=== PATIENT | male | born 1965 | race Caucasian/White ===

== ENCOUNTER 2018-03-16 23:01 | Inpatient (IN) | payer BC ==
[2018-03-16] MEDS ORDERED: Morphine INJ** 4 MG/ML 1 ML CARPUJECT IV ONE (23:09)
[2018-03-16] MEDS ORDERED: Clopidogrel TAB* 300 MG PO ONE (23:09)
[2018-03-16] MEDS ORDERED: Aspirin 81 mg CHEW TAB* 81 MG TAB.CHEW PO ONE (23:09)
[2018-03-16] MEDS ORDERED: Ticagrelor* 90 MG TAB PO ONE (23:09)
[2018-03-16] MEDS ORDERED: Heparin for STEMI(*) 5,000 UNITS/ML 1 ML VIAL IV ONE ×2 (23:09→23:13)
[2018-03-16] MEDS ORDERED: NS 0.9% 1000 ML* 1,000 ML IV ONE (23:09)
[2018-03-16] MEDS ORDERED: Metoclopramide IV* 5 MG/ML 2 ML VIAL IV SLOW PU ONE (23:11)
[2018-03-16] MEDS ORDERED: Pantoprazole IV* 40 MG IV ONE (23:12)
[2018-03-16] MEDS ORDERED: Aspirin 81 mg CHEW TAB* 81 MG TAB.CHEW ONE (23:13)
[2018-03-16] MEDS ORDERED: Nitroglycerin TAB 0.4 MG* 0.4 MG TAB ONE (23:13)
[2018-03-16] MEDS ORDERED: nitroGLYCERIN DRIP* 25,000 MCG/250 ML BTL ONE ×2 (23:14→23:34)
[2018-03-16] MEDS ORDERED: Morphine VIAL* 10 MG/ML 1 ML VIAL ONE ×2 (23:15→23:30)
[2018-03-16 23:28] LABS: ABS Basophils 0.1 10^3/ul (0-0.2); ABS Eosinophils 0.1 10^3/ul (0-0.6); ABS Lymphocytes 2.1 10^3/ul (1.0-4.8); ABS Monocytes 0.6 10^3/ul (0-0.8); ABS Neutrophils 6.6 10^3/ul (1.5-7.7); ABS Nucleated RBC 0 10^3/ul; Eosinophil % 1.3 % (0-6); Hematocrit 42 % (42-52); Hemoglobin 14.5 g/dl (14.0-18.0); Mean Corpuscular HGB Conc 35 g/dl (31-36); Mean Corpuscular Hemoglobin 33 pg (27-31); Mean Corpuscular Volume 96 fL (80-94); Mean Platelet Volume 8.7 um3 (7.4-10.4); Nucleated Red Blood Cells % 0; Platelet Count 249 10^3/ul (150-450); Red Blood Count 4.35 10^6/ul (4.00-5.40); Red Cell Distribution Width 13 % (10.5-15); White Blood Count 9.5 10^3/ul (3.5-10.8)
[2018-03-16] MEDS ORDERED: Morphine VIAL* 4 MG/ML VIAL (1 ml vial) IV ONE (23:30)
--- NOTE | 2018-03-16 23:31 | ED ---
HPI Chest Pain - HPI Summary HPI Summary: This is evijuan Ahnjomar Wallace documenting for attending Dr. Fiona Waters MD. A 52 y/o male presents to ED c/o chest pain. According to the patient, he has been experiencing chest pain for the past 2 hours. He originally thought it was his stmoach, but it progressively got worse. Additional symptoms are vomiting. Current medications are Aspirin. PMHx of stent for 4 years. - History of Current Complaint Time Seen by Provider: 03/16/18 23:03 Hx Obtained From: Patient - Allergy/Home Medications Allergies/Adverse Reactions: Allergies Allergy/AdvReac Type Severity Reaction Status Date / Time No Known Allergies Allergy Verified 09/06/13 17:15 PMH/Surg Hx/FS Hx/Imm Hx Endocrine/Hematology History: Denies: Hx Diabetes, Hx Thyroid Disease Cardiovascular History: Reports: Hx Hypertension Respiratory History: Denies: Hx Asthma, Hx Chronic Obstructive Pulmonary Disease (COPD) GI History: Reports: Hx Ulcer - gerd - Surgical History Surgery Procedure, Year, and Place: inguinal hernia left Infectious Disease History: Denies: Hx Hepatitis, Hx Human Immunodeficiency Virus (HIV), Traveled Outside the [place] in Last 30 Days - Family History Known Family History: Positive: Cardiac Disease - Social History Alcohol Use: None Substance Use Type: Reports: None Smoking Status (MU): Heavy Every Day Tobacco Smoker Amount Used/How Often: 1 PPD Review of Systems Negative: Fever Positive: Chest Pain Positive: Vomiting All Other Systems Reviewed And Are Negative: Yes Physical Exam - Summary Physical Exam Summary: GENERAL: Patient is a well-developed and nourished MALE who is lying comfortable in the stretcher. Patient is not in any acute respiratory distress. Patient is uncomfortable. HEAD AND FACE: No signs of trauma. No ecchymosis, hematomas or skull depressions. No sinus tenderness. EYES: PERRLA, EOMI x 2, No injected conjunctiva, no nystagmus. EARS: Hearing grossly intact. Ear canals and tympanic membranes are within normal limits. MOUTH: Oropharynx within normal limits. NECK: Supple, trachea is midline, no adenopathy, no JVD, no carotid bruit, no c- spine tenderness, neck with full ROM. CHEST: Symmetric, no tenderness at palpation LUNGS: Clear to auscultation bilaterally. No wheezing or crackles. CVS: Bradycardic, S1 and S2 present, no murmurs or gallops appreciated. ABDOMEN: Soft, non-tender. No signs of distention. No rebound no guarding, and no masses palpated. Bowel sounds are normal. EXTREMITIES: FROM in all major joints, no edema, no cyanosis or clubbing. NEURO: Alert and oriented x 3. No acute neurological deficits. Speech is normal and follows commands. SKIN: Dry and warm. Patient is diaphoretic Triage Information Reviewed: Yes Vital Signs Reviewed: Yes Diagnostics - Laboratory Lab Statement: Any lab studies that have been ordered have been reviewed, and results considered in the medical decision making process. - Radiology CXR Radiology Interpretation Completed By: ED Physician - EKG 2305 Cardiac Rate: Bradycardia - 50 BPM EKG Rhythm: Sinus Bradycardia EKG Interpretation: ST elev. inferior lead, ST dep. anterior lead, consistent acute inferior SD Chest Pain Course/Dx - Course Course Of Treatment: A 52 y/o male presents to ED c/o chest pain. According to the patient, he has been experiencing chest pain for the past 2 hours. He originally thought it was his stmoach, but it progressively got worse. Additional symptoms are vomiting. A CXR revealed COPD, no acute disease. An EKG revealed. In the ED course, the patient recieved Aspirin, Plavix, Heparin, Reglan, NTG, Morphine, Protonix and Brilinta. Patient care was discussed with Dr. Mahmood who is coming to see patient. Patient will be admitted with a diagnosis of acute inferior SD. Pt is agreeable with this plan. - Diagnoses Provider Diagnoses: Acute inferior myocardial infarction - Provider Notifications Discussed Care Of Patient With: Bill Mahmood Time Discussed With Above Provider: 23:16 Instructed by Provider To: Other - Will see patient. Discharge - Sign-Out/Discharge Documenting (check all that apply): Patient Departure - ADMIT - Discharge Plan Condition: Stable Disposition: HOME Referrals: Hellen Schaefer [Primary Care Provider] -
[2018-03-16] MEDS ORDERED: Heparin(*) 1000 UNIT/ML 10 ML VIAL CATH LAB IV ONE ×2 (23:33→23:53)
[2018-03-16] MEDS ORDERED: Midazolam* 1 MG/ML 10 ML VIAL (10 MG) ONE (23:33)
[2018-03-16] MEDS ORDERED: fentaNYL* 50 MCG/ML 2 ML VIAL (100 MCG VIAL) ONE (23:33)
[2018-03-16] MEDS ORDERED: Lidocaine 1%* 5 ML VIAL ONE (23:34)
[2018-03-16] MEDS ORDERED: Iohexol 350 (CONTRAST) 200 ML MDV IV ONE (23:34)
[2018-03-16] MEDS ORDERED: Heparin 2 UNITS/ML IVPREMIX* 2,000 ML IV ONE (23:34)
[2018-03-16 23:41] LABS: INR 0.86 (0.77-1.02)
[2018-03-16 23:45] LABS: EGFR Non-African American 72.8 (>60)
[2018-03-16] MEDS ORDERED: VERAPAMIL 2.5 MG/ML 2 ML VIAL ** 5 mg/2 ml ONE (23:53)
[2018-03-16] MEDS ORDERED: Bivalirudin(*) 250 MG VIAL ONE (23:58)
[2018-03-17] MEDS ORDERED: nitroGLYCERIN DRIP* 25,000 MCG/250 ML BTL ONE (00:19)
[2018-03-17] MEDS ORDERED: Iohexol 350 (CONTRAST) 200 ML MDV IV ONE (00:32)
[2018-03-17] MEDS ORDERED: niCARdipine 0.1MG/ML IVPREMIX* 20 MG/200 ML BAG ONE (00:42)
[2018-03-17] MEDS ORDERED: Ondansetron INJ* 2 MG/ML VIAL IV PRN (01:26)
[2018-03-17] MEDS ORDERED: Zolpidem TAB* 5 MG PO PRN (01:26)
[2018-03-17] MEDS ORDERED: Acetaminophen TAB* 325 MG PO PRN (01:26)
[2018-03-17] MEDS ORDERED: Docusate CAP* 100 MG PO PRN (01:26)
[2018-03-17] MEDS ORDERED: Nitroglycerin TAB 0.4 MG* 0.4 MG TAB SL PRN (01:26)
[2018-03-17] MEDS ORDERED: NS 0.9% 1000 ML* 1,500 ML IV ONE (01:30)
[2018-03-17] MEDS ORDERED: Atorvastatin* 80 MG TAB PO ONE (01:39)
[2018-03-17] MEDS ORDERED: Atorvastatin* 80 MG TAB ONE (02:01)
[2018-03-17] MEDS ORDERED: Mouth Piece, Nicotine* 1 EACH CARTRIDGE INH ONE (02:08)
[2018-03-17] MEDS ORDERED: Nicotine Inhaler* 10 MG AMP INH PRN (02:08)
--- NOTE | 2018-03-17 03:38 | HP ---
CC: Hellen Schaefer, nurse practitioner at [facility] in [place], [place]. ADMISSION HISTORY AND PHYSICAL: DATE OF ADMISSION: 03/17/18. CHIEF COMPLAINT: Severe epigastric discomfort radiating up to the jaw with nausea, vomiting and mild shortness of breath. HISTORY OF PRESENT ILLNESS: The patient is a 52-year-old gentleman with a history of coronary artery disease stating back to 2014 when at the [facility] in [place]. He presented wi th acute coronary syndrome and had a 2.5 x 16 mm long drug-eluting stent deployed to the proximal por tion of ramus artery. We have no reports of the status of the other artery at that time. Since that time, generally he had been doing well, but at work, he noticed occasionally he would get some mild epigastric discomfort brief in nature. Tonight at around 9 p.m. he started developing epigastric dis comfort with nausea, vomiting, and mild shortness of breath. It waxed and waned in severity and even tually got significantly worse and he came to the emergency room after two and a half hours. In the emergency room, the EKG showed an acute inferior wall ST-segment elevation myocardial infarction with reciprocal downsloping in I, aVL and V6. A STEMI alert was called and the patient received 4000 un its of heparin and 325 mg of aspirin. Of note, the emergency room physician had given both 300 mg cl opidogrel and also ordered 180 mg of Brilinta. He apparently got Reglan as well, morphine sulfate, and sublingual nitroglycerin. When I saw him in [facility] emergency room, he was actually feeling better, but still had mild discomfort. The risks and bene fits of cardiac catheterization were explained to the patient as he was familiar with it and he wish to proceed for emergent cardiac catheterization and possible percutaneous coronary intervention. PAST MEDICAL HISTORY: Significant for hypertension. He denies any diabetes. He has hyperlipidemia. He has a history of ADHD. Cardiac risk factors include the hypertension, hyperlipidemia, smoking h istory. ALLERGIES: He denied any significant drug allergies. REVIEW OF SYSTEMS: Pertinent to proceeding to the cardiovascular laboratory, the patient denied any stroke or TIA. He had no history of hematuria, hematemesis or hematochezia. No dye allergy. No kid laura disease. PHYSICAL EXAMINATION GENERAL: Physical examination when I saw him revealed a slightly anxious gentleman with only mild di scomfort. VITAL SIGNS: Blood pressure 154/88, pulse 52, respirations 20. O2 saturation 95%. HEENT: Conjunctivae pink. Sclerae clear. NECK: Supple without increased JVP. Carotid had fair upstroke and volume. There were no definitive bruits or transmitted murmur, although it was difficult to appreciate while in the emergency room. LUNGS: Reveal no accessory muscle usage. There was no active rales, rhonchi, wheezes. HEART: Revealed no visible heaves, no palpable heaves or thrills. Bradycardiac rate was noted. No s ignificant systolic or diastolic murmur. ABDOMEN: Soft, nontender without definitive organomegaly. EXTREMITIES: Without clubbing, cyanosis, or pedro pablo pitting edema. Peripheral pulses were intact. Fe moral pulses noted without bruits. The right radial artery pulse was present. His Jaden and reverse Jaden sign showed good flow. NEUROLOGIC: He was alert and oriented with normal mentation. MUSCULOSKELETAL: The patient moved all extremities . PSYCHOLOGICAL: The patient with normal affect. DIAGNOSTIC STUDIES/LAB DATA: Initially laboratory results were not available to the end of the case . Laboratory results revealed hemoglobin and hematocrit of 14.5 and 42 and white count of 9500 and a platelet count 249,000. Sodium 135, potassium 3.9, chloride 103, bicarb 23, BUN and creatinine 17 a nd 1.06. Lactic acid 0.8. Initial BNP was 28. Initial troponin was 0.01. CPK was 86 and MB 2.8. E KG was as mentioned with sinus bradycardia, heart rate 50, ST-segment elevation in the inferior leads with reciprocal changes in I, aVL and V6. ASSESSMENT AND PLAN: Overall assessment, the patient presents now with acute ST- segment elevation m yocardial infarction. He has been given 4000 units of heparin and aspirin and both clopidogrel and B rilinta. The risks and benefits of cardiac catheterization were explained and he wished to proceed. Further management will be made pending results of the cardiac catheterization. [id number]/[facility] #: [id number]
[2018-03-17 05:51] LABS: ABS Basophils 0 10^3/ul (0-0.2); ABS Eosinophils 0 10^3/ul (0-0.6); ABS Lymphocytes 1.6 10^3/ul (1.0-4.8); ABS Monocytes 0.6 10^3/ul (0-0.8); ABS Neutrophils 7.3 10^3/ul (1.5-7.7); ABS Nucleated RBC 0 10^3/ul; Eosinophil % 0.3 % (0-6); Hematocrit 41 % (42-52); Hemoglobin 13.9 g/dl (14.0-18.0); Lymphocyte % 16.8 % (25-47); Mean Corpuscular HGB Conc 34 g/dl (31-36); Mean Corpuscular Hemoglobin 33 pg (27-31); Mean Corpuscular Volume 98 fL (80-94); Mean Platelet Volume 8.5 um3 (7.4-10.4); Nucleated Red Blood Cells % 0.1; Platelet Count 213 10^3/ul (150-450); Red Blood Count 4.18 10^6/ul (4.00-5.40); Red Cell Distribution Width 13 % (10.5-15); White Blood Count 9.7 10^3/ul (3.5-10.8)
[2018-03-17 06:13] LABS: EGFR Non-African American 78.8 (>60)
[2018-03-17] MEDS ORDERED: Omeprazole CAP* 20 MG PO SCH (09:00)
[2018-03-17] MEDS ORDERED: Metoprolol Tartrate TAB* 25 MG PO SCH (09:00)
[2018-03-17] MEDS ORDERED: Aspirin 81 mg CHEW TAB* 81 MG TAB.CHEW PO SCH (09:00)
--- NOTE | 2018-03-17 09:58 | ECHO ---
Patient: AVILA GENTILE [facility] Rec#: [id number] : 1965 Date: 03/17/2018 Age: 52y Height: 185.42 cm / 73.0 in Weight: 81.65 kg / 180.0 lbs Sex: M BSA: 2.06 Room#: [facility] Admit Date#: 03/17/2018 Type: Inpatient Referring: Bill Mahmood MD Reading: Bernardino Kwan DO Compounding Assistant: Zahira Cheek RDCS CC: Hellen Schaefer NP Transthoracic Echocardiogram Indication: IA, s/p PCI BP: 137/72 HR: 53 Rhythm: Bradycardia Findings History: CAD s/p PCI 2014, smoker, HTN, HLD. Technical Comments: The study quality is fair. Completed at 0800. Left Ventricle: The left ventricular chamber size is normal. Mild concentric left ventricular hypertrophy is observed. There is normal left ventricular systolic function. The estimated ejection fraction is 55-60%. There is no consistent Doppler evidence of clinically significant diastolic dysfunction. The basal inferolateral, and basal inferior wall segments are hypokinetic (score 2). Overall wallmotion score index is 2.00 Left Atrium: The left atrium is mildly dilated. Right Ventricle: The right ventricular chamber size and systolic function are within normal limits. Right Atrium: The right atrial cavity size is normal. Aortic Valve: The aortic valve is trileaflet. The aortic valve leaflets are mildly thickened. There is no evidence of aortic regurgitation. There is no evidence of aortic stenosis. Mitral Valve: The mitral valve leaflets are mildly thickened. There is a trace of mitral regurgitation. There is no evidence of mitral stenosis. Tricuspid Valve: The tricuspid valve leaflets are normal. There is a physiologic tricuspid regurgitation. Unable to estimate the right ventricular systolic pressure. There is no tricuspid stenosis. Pulmonic Valve: The pulmonic valve appears normal. There is a trace pulmonic regurgitation. There is no pulmonic stenosis. Pericardium: There is no significant pericardial effusion. Aorta: There is no dilatation of the ascending aorta. There is no dilatation of the aortic arch. There is mild dilatation of the aortic root. Pulmonary Artery: The main pulmonary artery is not well visualized. Venous: The inferior vena cava appears normal in size. There is a greater than 50% respiratory change in the inferior vena cava dimension. Conclusions The left ventricular chamber size is normal. Mild concentric left ventricular hypertrophy is observed. There is normal left ventricular systolic function. The estimated ejection fraction is 55-60%. The basal inferolateral and basal inferior wall segments are hypokinetic The left atrium is mildly dilated. The right ventricular chamber size and systolic function are within normal limits. No significant valvular abnormalities noted None prior for comparison at time of interpretation. Measurements Name Value Normal Range RVIDd (AP) 2D 4.2 cm (0.9 - 2.6) IVSd (2D) 1.1 cm (0.6 - 1) LVPWd (2D) 1.1 cm (0.6 - 1) LVIDd (2D) 4.6 cm (3.6 - 5.4) LVIDs (2D) 3.7 cm - LV FS (2D) 19 % (25 - 45) Aortic Annulus 2.1 cm (1.4 - 2.6) Ao root diameter (2D) 3.7 cm (2.1 - 3.5) Ascending Ao 3.1 cm (2.1 - 3.4) Aortic arch 2.5 cm (1.8 - 3.4) LA dimension (AP) 2D 3.6 cm (2.3 - 3.8) LAd ISD 4CH 5.7 cm (2.9 - 5.3) LA ISD 4CH W 4.5 cm (2.5 - 4.5) Name Value Normal Range LA ESV SP 4CH (A/L) 72 ml - LA ESV SP 2CH (A/L) 101 ml - LA ESV BP (A/L) 91 ml - LA ESV BP (A/L) index 44 ml/m2 - LA ESV SP 4CH (MOD) 68 ml - LA ESV SP 2CH (MOD) 91 ml - Name Value Normal Range MV E-wave Vmax 0.73 m/sec - MV deceleration time 212.8 msec - MV A-wave Vmax 0.69 m/sec - MV E:A ratio 1.05 ratio - LV septal e' Vmax 0.08 m/sec - LV lateral e' Vmax 0.11 m/sec - LV E:e' septal ratio 9.13 ratio - LV E:e' lateral ratio 6.64 ratio - Name Value Normal Range AV Vmax 1.38 m/sec - AV VTI 29.77 cm - AV peak gradient 7.62 mmHg - AV mean gradient 4.22 mmHg - LVOT Vmax 1.03 m/sec - LVOT VTI 22.3 cm - LVOT peak gradient 4.25 mmHg - LVOT mean gradient 1.95 mmHg - BOLA Vmax 0.74 m/sec - Name Value Normal Range IVC diameter 2 cm - Name Value Normal Range PV Vmax 0.69 m/sec - PV peak gradient 1.91 mmHg - Wallmotion BAS Not Seen BA Not Seen BAL Not Seen YOHAN Hypokinetic BI Hypokinetic BIS Not Seen MAS Not Seen MA Not Seen MAL Not Seen MIL Not Seen IA Not Seen MIS Not Seen Not Seen AA Not Seen AL Not Seen AI Not Seen APEX Not Seen
--- NOTE | 2018-03-17 10:31 | RAD ---
Indication: Shortness of breath. Chest pain. STEMI. History of tobacco use. Comparison: May 28, 2016 Technique: Upright AP 2325 hours Report: Elevated lung volumes and both diffuse mild prominence of the interstitial markings and patchy rarefaction of the mid to upper lung zone interstitial markings. No focal pulmonary lesion, compelling alveolar consolidation, pleural effusion, pneumothorax. Cutaneous cardiac pacemaker leads in place. Negative for cardiomegaly. Unremarkable central pulmonary vasculature and mediastinal contours. IMPRESSION: #. Stigmata of obstructive lung disease. No acute pulmonary or cardiac process evident.
[2018-03-17] MEDS ORDERED: Lisinopril TAB* 10 MG PO ONE (11:28)
[2018-03-17] MEDS ORDERED: Ticagrelor* 90 MG TAB PO SCH (13:00)
[2018-03-17] MEDS ORDERED: Lisinopril TAB* 10 MG ONE (14:35)
[2018-03-17 15:26] VITALS: BP 152/74
[2018-03-17] MEDS ORDERED: Atorvastatin* 80 MG TAB PO SCH (21:00)
--- NOTE | 2018-03-17 23:13 | CATH ---
CC: Hellen Schaefer NP, [place], [place] CARDIAC CATHETERIZATION AND INTERVENTIONAL REPORT: DATE OF PROCEDURE: 03/16/18 INDICATION FOR THE PROCEDURE: The patient presents with ST-segment elevation inferior wall myocardial infarction. PROCEDURE: Coronary arteriography, primary stenting of the distal circumflex left dominant artery prior to the left-sided posterior descending artery, primary stenting of the circumflex with a 2.5 x 16 mm long Synergy drug-eluting stent dilated to 2.65 to 2.7 mm, primary stenting of the proximal LAD with a 2.75 x 32 mm long Synergy drug-eluting stent postdilated to 3.1 to 3.2 mm, left heart catheterization. The patient was interviewed and examined in the emergency room where the risks and benefits were explained. He understood them and wished to proceed. He was brought to the cardiovascular laboratory where the right radial artery was assessed by ultrasound and found to be acceptable for an approach and as such, the approach was a right radial artery. EQUIPMENT UTILIZED: 1. Right radial artery sheath with a 6-Liberian Glidesheath. 2. Diagnostic coronary catheter with a 5-Liberian TIG4 curve catheter. 3. The regular guidewire was both a Strickland curved guidewire 260 length and a Loladex exchange 260 length wire. 4. Guiding catheter: 6-Liberian VL 3.5 curved guide catheter. 5. Interventional guidewire: A 190 cm length All Star guidewire. 6. Intracoronary stents utilized: A 2.5 x 16 mm long Synergy stent in the distal circumflex before the left-sided posterior descending artery, a 2.75 x 32 mm Synergy drug-eluting stent in the proximal LAD. 7. Post deployment balloon inflation catheter: A 3.0 x 12 mm long NC Emerge. 8. The left heart catheterization catheter is a 5-Liberian PIG Performa radial. MEDICATIONS: Medications given during the case included Versed 1 mg intravenously and nitroglycerin drip was utilized and titrated up to 25 mcg/ minute for blood pressure control, Cardene a total of 200 mcg was given intravenously to help control blood pressure, Angiomax bolus and Angiomax drip as mentioned. DESCRIPTION OF PROCEDURE: The patient was brought into the cardiovascular laboratory, where a formal time-out was performed. He was prepped and draped in a sterile fashion. Right radial artery area was anesthetized with 1% lidocaine and cannulated with sheath. Diagnostic views were obtained with a TIG4 curved catheter. A decision was made to intervene into the left dominant distal circumflex before the posterior descending artery and the left anterior descending artery. Guiding views were obtained utilizing the 6-Liberian VL 3.5 curved left coronary guide catheter. Of note, the patient had already received both Plavix and Brilinta and heparin bolus in the emergency room. ACT was checked and found to be subtherapeutic and as such, an Angiomax bolus and an Angiomax drip was started. An All Star wire was advanced down the circumflex artery into the left-sided PDA. Primary stenting was performed utilizing the 2.5 x 16 mm long balloon dilated to 14 atmospheres to obtain a 2.65 mm. The artery was then assessed both with the wire in place and wire removed. The wire was repositioned into the LAD and primary stenting was performed utilizing 2.75 x 32 mm long Synergy drug-eluting stent with postdeployment balloon inflations made with a 3.0 x 12 mm long NC Emerge balloon. The artery was assessed at the end of the case with multiple views. RESULTS: LEFT HEART CATHETERIZATION: Central aortic pressure was recorded at 172/82 with a mean of 117, left ventricular pressure 169/left ventricular end-diastolic pressure of 17. CORONARY ARTERIOGRAPHY: A. Right coronary artery - a nondominant vessel supplying a multiple acute marginal branches to the right coronary artery with a distal branch that barely turned on to the inferior surface of the heart. B. Left coronary artery: 1. Left main, short in nature and with a minimal ostial narrowing of 10% to 15%. 2. Left anterior descending artery. The left anterior descending artery had moderate disease of 40% to 45% followed by a 65% to 70% in an area that appear to be dissected in the proximal LAD before the first septal food stylist. The mild-to- distal area showed an area of muscle bridging with a lumen reduction during diastole of perhaps 40%. 3. Circumflex artery - a dominant vessel supplying a thin first and second obtuse marginal branch with a moderate size mid obtuse marginal branch, which had diffuse disease seen in its proximal portion area of luminal reduction noted to be 45% to 50%. The continuation of circumflex supplied multiple thin low lying posterior left ventricular branches. Prior to a moderate size left-sided PDA, there was a critical 95% lesion seen. Of note, EM-2 to 3 flow was seen in the distal portion of this vessel. INTERVENTION INTO DISTAL CIRCUMFLEX PRIOR TO PDA: Successful reduction of critical 95% lesion with primary stenting utilizing a 2.5 x 16 long Synergy drug-eluting stent reducing a 95% blockage to less than 5%, EM-3 flow, no dissection seen. INTERVENTION INTO PROXIMAL LAD: Successful reduction of a dissected lesion proximal LAD with up to 80% stenosis spanning more proximally, utilizing a 2.75 x 32 mm long Synergy drug- eluting stent postdilated 3.1 to 3.2 mm with less than 5% residual stenosis, EM-3 flow, no dissection seen. OVERALL ASSESSMENT: Significant 2-vessel disease with culprit lesion most likely distal circumflex given the ST-segment elevation noted. There was moderate disease in the mid LAD with some degree of muscle bridging over that as well. For now, medical management will be pursued aggressively with high-dose statin therapy, dual antiplatelet therapy. Of note, the patient does smoke and needs clear cut smoking cessation, but is not interested in pursuing this. He states that he will never stop smoking despite understanding the risks to his overall cardiac care as well as his health in general. We did make multiple efforts in trying to urge him to seek smoking cessation. Aggressive risk factor management otherwise will include high- dose statin therapy. We will watch his blood pressure in the hospital and restart his lisinopril, in addition to beta- alina therapy low dose given the bradycardia that he has. [id number]/[facility] #: [id number] ZANE
--- NOTE | 2018-03-17 23:37 | DS ---
CC: Hellen Schaefer NP, [place], [place] DISCHARGE SUMMARY: DATE OF ADMISSION: DATE OF DISCHARGE: FINAL DIAGNOSIS: Acute ST segment elevation, inferior wall myocardial infarction. SECONDARY DIAGNOSES: 1. Stenotic coronary artery disease. 2. Hypertension. 3. Hyperlipidemia. 4. Attention deficit and hyperactivity disorder. 5. Smoking abuse. HISTORY OF PRESENT ILLNESS: The patient is a 52-year-old gentleman with known history of prior coron javier artery disease with having had a stent placed at the [facility] in [place]. Please refer to the H and P for complete details of his presentation to [facility]. In essence, he came in with an acute ST segment inferior wall myocardial infarction and was given hep jos in addition to full dose aspirin. The emergency room physician gave both Brilinta 180 mg p.o. a nd clopidogrel 300 mg p.o. He was taken to the cardiovascular laboratory emergently and found to have a critical 95% distal circ umflex blockage in a left dominant system before the posterior descending artery of the circumflex. He was also found to have a dissected proximal LAD with an 85% lesion. There was EM-3 flow in both vessels. He subsequently underwent stent placement to both areas with placement of a 2.5 x 16 mm estefania g Synergy stent in the distal circumflex and a 2.75 x 32 mm long Synergy drug-eluting stent in the pr oximal LAD. The proximal LAD sent was postdilated to 3.1 to 3.2 mm. Postprocedure, he did well and his cardiac enzymes had revealed low level CPK and troponin leak. His total CPK did not break the normal range and the last one we had available was at 140 with an MB of 17.7. The troponin was pending at the time of this dictation. Of note, earlier in the day, the yoshi ent became quite insistent that he was leaving the hospital even if he had to sign out AMA. I was ab le to at least ask him to wait until the late afternoon until we could get him up and about to make s ure he was stable. His EKG showed resolution of his ST-T wave changes with only flat, nonspecific ST -T wave changes in the inferior leads in V5 and V6. He was up and about without any chest, throat, ja w, or arm discomfort. PHYSICAL EXAMINATION: When I saw him revealed, vital signs: Blood pressure of 130/75, pulse was 52 and regular, respirations 15, afebrile. Neck was supple, no increased JVP. Carotids with good upstr suzanne and volume without bruits. Conjunctivae are pink. Sclerae clear. Mouth revealed moist mucosa. Lungs revealed no accessory muscle usage. There was good excursion. There were no active rales, rho nchi, or wheezes. Heart revealed no visible heaves. No palpable heaves or thrills. Normal S1, S2 w ith no S3, S4, or gallops. Bradycardic rate was noted. No significant systolic or diastolic murmur. Abdomen was soft, nontender without organomegaly. Extremities without edema. The right radial art leora site was well-healed. There was no hematoma, good pulse and good antegrade radial artery flow wa s seen. Neuro: The patient was alert, oriented with normal mentation. Musculoskeletal: The patient moves all extremities appropriately and had a normal gait. Psychiatric. The patient is clearly anx ious about being in the hospital and refusing to stay. LABORATORY DATA: Laboratory results otherwise from 05:30 a.m. revealed a BUN and creatinine of 14 an d 0.9 with a potassium of 4.4. His SGOT was 16. SGPT was 11. His total cholesterol was 157. His LD L was 92. His hemoglobin and hematocrit was 13.9 and 41 with a platelet count of 213,000. White cou nt was 9700. I did explain to him at length, the risk of leaving the hospital prior to having at least another 24 hours including the risk of life-threatening heart rhythm disturbances and recurrent anginal episodes . He understood this and basically said he needed to get out of the hospital and could not remain an ymore. He was willing to wait until 4 p.m. until we had medication adjusted and assessing them with him up and about. He had an echocardiogram done this morning and it revealed normal left ventricular contractility with an EF of 55% to 60%. There was a question of basilar inferior lateral and basilar inferior wall hyp okinesis. It was very focal in nature. There was no significant valvular disease. We will be sched uling an appointment to see him within a week to 2 weeks. I have given him extra Brilinta bottles in case he does not get it at the pharmacy along with a hospital 5-day supply, which would last until I see him. He would prefer going back on clopidogrel, but I explained the importance of utilizing the Brilinta, especially with 2 new stents and the better performance and acute coronary syndrome. OTHER MEDICATIONS: At the time of discharge include: 1. Adderall 20 mg a day. 2. Lisinopril 20 mg a day. 3. Omeprazole 20 mg a day. 4. Proventil inhaler as needed. 5. Baby aspirin once a day. 6. Atorvastatin 80 mg a day. 7. Metoprolol tartrate 12.5 mg twice a day. 8. Ticagrelor 90 mg twice a day. 9. Sublingual nitroglycerin as needed. He was given a cardiac education booklet and his stent card to have with him at all times. [id number]/[facility] #: [id number]
== END 2018-03-17 16:00 | disposition home or self-care (01) | DRG 174 ==
LOC: ED 23:01 → CHICATH 23:53 → ICU 03-17 01:27
PROVIDERS: ADMIT Internal Medicine Cardiovascular Disease; ATTEND Internal Medicine Cardiovascular Disease
PROC: 4A023N7 Measurement of Cardiac Sampling and Pressure, Left Heart, Percutaneous Approach (ICD-10-PCS; principal; 2018-03-17)
PROC: B2111ZZ Fluoroscopy of Multiple Coronary Arteries using Low Osmolar Contrast (ICD-10-PCS; 2018-03-17)
PROC: 027135Z Dilation of Coronary Artery, Two Arteries with Two Drug-eluting Intraluminal Devices, Percutaneous Approach (ICD-10-PCS; 2018-03-17)
DX: I21.19 ST elevation (STEMI) myocardial infarction involving other coronary artery of inferior wall (principal); I25.10 Atherosclerotic heart disease of native coronary artery without angina pectoris; I10 Essential (primary) hypertension; E78.5 Hyperlipidemia, unspecified; K21.9 Gastro-esophageal reflux disease without esophagitis; F17.210 Nicotine dependence, cigarettes, uncomplicated; F90.9 Attention-deficit hyperactivity disorder, unspecified type; Z79.82 Long term (current) use of aspirin; Z79.51 Long term (current) use of inhaled steroids; Z95.5 Presence of coronary angioplasty implant and graft; Z82.49 Family history of ischemic heart disease and other diseases of the circulatory system
CPT/HCPCS: 36415; 71045; 80053; 80061; 82550; 82553; 83605; 83721; 83880; 84484; 85025; 85347; 85610; 85730; 86850; 86900; 86901; 93005; 93306; 99156; 99157; 99284; 99406; A9270-GY; C1725; C1769; C1876; C1887; C9601-LD; C9606-LC; J0583; J1644; J2250; J2270; J2765; J3010

== ENCOUNTER 2019-07-14 06:22 | Emergency (ER) | payer BC ==
--- OUTSIDE RECORDS SUMMARY | 2019-07-14 06:29 | XMS REPORT | Continuity of Care Document ---
:1965 External Reference #:[id number] Author Name Hellen Schaefer RN MS [employer] Address [address] [place] [address] Care Team Providers Name Role Phone Cameron Mclain MD - Urology Care Team Information Material Attendant [phone] Jericho Rivers MD Care Team Information Material Attendant [phone] Problems Active Problems Provider Date Benign essential hypertension Hellen Schaefer RN MS [employer]ATOR Onset: 02/13/2011 Gastroesophageal reflux disease Hellen Schaefer RN MS [employer] Onset: 2012 Attention deficit hyperactivity Hellen Schaefer RN MS [employer] TRA[employer] OPERATOR Onset: 2012 disorder, predominantly inattentive type Essential hypertension Hellen Schaefer RN MS [employer] OPERATOR Onset: 10/01/2015 Social History Type Date Description Comments Sex Unknown Tobacco Use Start: Unknown Current Cigarette Smoker since Age 16( TRYING 1 Pack Daily TO QUIT SINCE HIS HEART ATTACK) ETOH Use Denies alcohol use Recreational Drug Use Former Drug User crystal meth Tobacco Use Start: Unknown Patient was a smoker, current status is unknown Smoking Status Reviewed: 07/10/19 Patient was a smoker, current status is unknown Tattoo/Piercing Tattoo rt upper arm Allergies, Adverse Reactions, Alerts Description No Known Drug Allergies Medications Active Medications SIG Qnty Indications Ordering Date Provider Albuterol Sulfate HFA 2 p four times 25.5gm J44.9 Silvano, 07/10/2019 108(90Base) a day as needed Hellen Sage RN mcg/Act Aerosol katja MS [employer] OPERATOR Lisinopril 1 by mouth 90tabs I10 Silvano, 07/10/2019 40mg Tablets every day Hellen Sage RN MS [employer] OPER[employer] Stiolto Respimat inhale two 4gm J44.9 Silvano, 02/21/2019 2.5-2.5mcg/Act puffs by mouth Hellen Sage RN Aerosol every day MS [employer]ATOR Esomeprazole Magnesium 1 by mouth 90caps K21.9 [place], 02/21/2019 20mg every day Hellen Sage RN Capsules DR MS [employer] OPERATOR Aerochamber Mini Aerosol To Use With His 1units Silvano, 02/21/2019 Chamber Albuterol Hellen Sage RN Device Inhaler MS [employer] OPERATOR Amphetamine-Dextroamphetam one tab every 90tabs F90.9 Silvano, 11/15/2018 ine day as needed Hellen Sage RN 20mg Tablets for focus code MS [employer] TRACTOR OPERATOR b Fluticasone Propionate two spray per 16units J30.9 Silvano, 01/12/2017 50mcg/Act each nostril Hellen Sage RN Suspension every day ( MS [employer] TRACTOR OPERATOR otc) Asprin 81 MG One Daily Post Silvano, 07/07/2015 IN Hellen Sage RN MS [employer] TRACTOR OPERATOR Clopidogrel Bisulfate 1 by mouth I21.09 Unknown 75mg every day Tablets Nitroglycerin 1 sl as needed I21.09 Unknown 0.4mg Tablets Sub chest pain may repeat every 5 minutes x 2. if no relief then go to er Hydrochlorothiazide 1 by mouth Unknown 25mg Tablets every day for blood pressure History Medications Proventil HFA 2 p four times 6.700gm J44.9 Hellen Schaefer 02/03/2019 - a day as needed RENARD Sage MS [employer]INE TRACTOR OPERATOR 07/10/2019 108(90Base) mcg/Act katja Aerosol Immunizations CPT Code Status Date Vaccine Lot # [id number] Given 10/28/2015 Tdap (Adacel) Ages 7 And Above Only [id number] Refused 07/10/2019 Influenza Vac, Quadrivalent, Split, 0.5mL Dosage, Im Use [id number] Refused 06/21/2017 Influenza Vac, Quadrivalent, Split, 0.5mL Dosage, Im Use Vital Signs Date Vital Result Comment 07/10/2019 1:51pm Weight 219.00 lb Heart Rate 85 /min BP Systolic 185 mmHg BP Diastolic 96 mmHg Height 73 inches 6'1" BMI (Body Mass Index) 28.9 kg/m2 02/21/2019 10:01am Weight 215.00 lb Heart Rate 67 /min BP Systolic 169 mmHg BP Diastolic 90 mmHg Height 73 inches 6'1" BMI (Body Mass Index) 28.4 kg/m2 Results Test Acquired Date Facility Test Result H/L Range Note Lipid 02/21/2019 Dom Cholesterol 195 mg/dL 50-199 Triglycerides 124 mg/dL 30-200 HDL 36 mg/dL 29-71 1 Chol/ HDL Ratio 5.4 ratio 4.0-6.7 VLDL 25 mg/dL 2-29 LDL (Calc) 134 mg/dL High 20-99 2 CBC with Auto Diff-fcmg 02/21/2019 Dom WBC 6.2 K/uL 4.1-11.0 RBC 4.25 M/uL Low 4.60-6.10 Hemoglobin 14.1 gm/dL 13.5-18.0 Hematocrit 42.0 % 41.0-53.0 MCV 99.0 fL High 80.0-97.0 MCH 33.3 pg High 27.0-32.0 MCHC 33.6 g/dL 32.0-36.0 RDW 13.4 % 11.5-14.5 PLT Count 249 K/ul 140-400 MPV 8.7 FL 7.1-10.7 Neutrophil 62.6 % 35.0-75.0 Lymphocyte 28.5 % 16.0-52.0 Monocyte 6.8 % 2.0-10.0 Eosinophil 1.5 % 0.0-5.0 Basophil 0.6 % 0.0-4.0 Abs Neutrophils 3.9 K/uL 2.1-8.0 Abs Lymphocytes 1.8 K/uL 0.8-5.5 Abs Monocytes 0.4 K/uL 0.1-1.0 Abs Eosinophils 0.1 K/uL 0.0-0.5 Abs Basophils 0.0 K/uL 0.0-0.3 Laboratory test finding 02/21/2019 Dom PSA 1.910 ng/mL 0.000-4.000 3 Comprehensive Met Panel-[facility] 02/21/2019 Dom Sodium 138 mmol/L 135- 146 4 Potassium 4.0 mmol/L 3.5-5.2 Chloride# 100 mmol/L 97-110 5 Carbon Dioxide 30 mmol/L 24-34 Calcium 9.4 mg/dL 8.5-10.5 6 Glucose 90 mg/dL 70-105 BUN 19 mg/dL 6-26 Creatinine 0.9 mg/dL 0.5-1.4 Total Protein 7.3 g/dL 6.0-8.0 Albumin 4.1 g/dL 3.6-4.9 Globulin 3.2 g/dL 2.0-3.5 A/G Ratio 1.3 Ratio 1.0-2.2 Total Bilirubin 0.5 mg/dL 0.1-1.3 Alkaline Phosphatase 89 U/L 24-140 Alt 10 U/L 3-42 Ast 15 U/L 8-42 Anion Gap 8 mmol/L 5-15 7 Female Egfr 72 >60 8 Male Egfr 96 >60 9 1 Per NCEP ATP III Guidelines: Results lower than 40 mg/dL are suggestive of increased risk for coronary artery disease. Results > or = to 60 mg/dL are considered a negative risk factor. 2 Per NCEP ATP III Guidelines: Normal Population <130 Patients with medical conditions: CHD/DM Optimal: <100 Borderline high: 130-159 High: 160-189 Very high: >189 3 Beginning 10/22/06 PSA values assayed at [employer] uses chemiluminescence methodology manufactured by [employer] for use on the DXI analyzer. Values obtained with different assay methods or kits can not be used interchangeably. Serum PSA measurement is not an absolute test for malignancy. The PSA value should be used in conjunction with information available from clinical evaluation and other diagnostic procedures. 4 Updated reference range on new analyzer 5 Updated reference range on new analyzer 6 Updated reference range 12-25-2018 7 Updated Reference Range 8 Concerning GFR Guidelines for Americans: Normal function or mild renal disease, if clinically at risk: >/= 60 mL/min Moderately decreased: 30-59 Severely decreased: 15-29 Renal failure: <15 There is reduced accuracy above 60ml/min/1.73 m squared, but the numeric value may be clinically useful in the near 60 range 9 Concerning GFR Guidelines: Normal function or mild renal disease, if clinically at risk: >/= 60 mL/min Moderately decreased: 30-59 Severely decreased: 15-29 Renal failure: <15 There is reduced accuracy above 60ml/min/1.73 m squared, but the numeric value may be clinically useful in the near 60 range Glomerular Filtration Rate (GFR) is estimated based on the CKD-EPI equation, which assumes a steady state for creatinine as recommended by the National Kidney Disease Education Program in conjunction with the National Institutes of Health and the National Kidney Foundation. Clinical conditions in which it may be necessary to measure GFR by using clearance methods include extremes of age and body size, severe malnutrition or obesity, diseases of skeletal muscle, paraplegia or quadriplegia, vegetarian diet, rapidly changing kidney function, and calculation of the dose of potentially toxic drugs that are excreted by the kidneys. Procedures Description No Information Available Medical Devices Description No Information Available Encounters Type Date Location Provider Dx Diagnosis Office Visit 02/21/2019 Hellen Capone, F90.9 Attention-deficit 9:40a RN [facility] hyperactivity disorder, unspecified type F17.210 Nicotine dependence, cigarettes, uncomplicated E78.2 Mixed hyperlipidemia I10 Essential (primary) hypertension K21.9 Gastro-esophageal reflux disease without esophagitis J44.9 Chronic obstructive pulmonary disease, unspecified I21.09 Stemi involving oth coronary artery of anterior wall Z12.5 Encounter for screening for malignant neoplasm of prostate Z68.28 Body mass index (BMI) 28.0-28.9, adult Assessments Date Code Description Provider 07/10/2019 I10 Essential (primary) hypertension Hellen Schaefer RN [facility] 07/10/2019 E78.2 Mixed hyperlipidemia Hellen Schaefer, RN [facility] 07/10/2019 K21.9 Gastro-esophageal reflux disease Hellen Schaefer, RN [facility] without esophagitis 07/10/2019 Z68.28 Body mass index (BMI) 28.0-28.9, Hellen Schaefer, RENARD [facility] adult 02/21/2019 F90.9 Attention-deficit hyperactivity Hellen Schaefer, RENARD [facility] disorder, unspecified type 02/21/2019 F17.210 Nicotine dependence, cigarettes, Hellen Schaefer, RENARD [facility] uncomplicated 02/21/2019 E78.2 Mixed hyperlipidemia Hellen Schaefer, RENARD [facility] 02/21/2019 I10 Essential (primary) hypertension Hellen Schaefer, RN [facility] 02/21/2019 K21.9 Gastro-esophageal reflux disease Hellen Schaefer, RENARD [facility] without esophagitis 02/21/2019 J44.9 Chronic obstructive pulmonary Hellen Schaefer, RENARD [employer] disease, unspecified 02/21/[address] elevation (Stemi) myocardial Hellen Schaefer RN MS [employer] OPERATOR infarction involving other c 02/21/2019 Z12.5 Encounter for screening for malignant Hellen Schaefer RN MS [employer] O[employer] neoplasm of prostate 02/21/2019 Z68.28 Body mass index (BMI) 28.0-28.9, Hellen Schaefer RN MS [employer] O[employer] adult 02/21/2019 E78.2 Mixed hyperlipidemia [facility] 02/21/2019 K21.9 Gastro-esophageal reflux disease [facility] without esophagitis 02/21/2019 Z12.5 Encounter for screening for malignant [facility] neoplasm of prostate 02/21/2019 I10 Essential (primary) hypertension [facility] Plan of Treatment Future Appointment(s):08/15/2019 3:00 pm - Hellen Schaefer RN MS [employer] TRA[employer] OPERATOR at [id number]/10/2019 - Hellen Schaefer RN MS [id number] Essential (primary) hypertensionNew Medication:Lisinopril 40 mg - 1 by mouth every dayComments: Discussed the need to decrease the caffine intake. Pt will work on that BP TOO HIGH, AND STATES NOT TAKING ADDERALL NOW, WILL INCREASE LISINOPRIL TO 40 MGE78.2 Mixed zeboynkaatimfxS79.9 Gastro-esophageal reflux disease without soiezvbbrurX90.28 Body mass index (BMI) 28.0-28.9, adult Functional Status Description No Information Available Mental Status Description No Information Available Referrals Description No Information Available
--- OUTSIDE RECORDS SUMMARY | 2019-07-14 06:29 | XMS REPORT | Continuity of Care Document ---
:1965 External Reference #:[id number] Author Name Jericho Rivers M.D. (transmitted by agent of provider Colette Orr) Address [address] [place] [address] Care Team Providers Name Role Phone Hellen Schaefer, [employer] - Family Care Team Information Manager Financial Services Problems Active Problems Provider Date Acute myocardial infarction Charity Leung [facility], [facility] Onset: 2017 Social History Type Date Description Comments Sex Unknown Tobacco Use Start: Unknown Current Cigarette Smoker 1 Pack Daily ETOH Use Occasionally consumes 4-5beers a week alcohol Tobacco Use Start: Unknown Heavy tobacco smoker (more than 10 cigarettes/day) Recreational Drug Use Denies Drug Use Tobacco Use Start: Unknown Patient is a current smoker, smokes every day Smoking Status Reviewed: 05/23/19 Patient is a current smoker, smokes every day Exercise Type/Frequency Does not exercise Allergies, Adverse Reactions, Alerts Description No Known Drug Allergies Medications Active Medications SIG Qnty Indications Ordering Date Provider Hydrochlorothiazide 1 by mouth 90tabs I10 Jer[address] 05/23/2019 25mg Tablets every day Imani Rivers Amoxicillin/Clavulanate 3 times a day 30tabs K08.[address] 05/23/2019 Potassium for 10 days Imani Rivers 250-125mg Tablets Plavix 3 pills first 90tabs I21.[address] 03/20/2018 75mg Tablets day, then 1 Imani Rivers by mouth every day Lisinopril 1 by mouth 30tabs Charity Powell 03/17/2018 20mg Tablets every day MD Madhu, FACC, [facility] Aspirin 81 Low Dose 1 by mouth 90units Charity Powell 03/17/2018 81mg Chewtabs every day MD Leung FACC, [facility] Atorvastatin Calcium 1 by mouth 30tabs Charity Flor. 03/17/2018 80mg Tablets every day MD Leung FACC, F[facility] Nitrostat one sl q5min 30tabs Charity Flor. 03/17/2018 0.4mg Tablets Sub up to 3 doses MD Madhu, as needed CARLOS ENRIQUE CARLTON Adderall 1 by mouth Unknown 20mg Tablets every day Proventil HFA inhale two Unknown 108(90Base) mcg/Act puffs by Aerosol mouth four times a day as needed Nexium 1 by mouth Unknown 20mg Capsules DR every day Immunizations Description No Information Available Vital Signs Date Vital Result Comment 05/23/2019 9:18am Height 73 inches 6'1" Weight 214.00 lb with boots Heart Rate 60 /min BP Systolic Sitting 162 mmHg lue reg cuff BP Diastolic Sitting 100 mmHg lue reg cuff BP Systolic Standing 170 mmHg lue reg cuff BP Diastolic Standing 94 mmHg lue reg cuff Respiratory Rate 16 /min BMI (Body Mass Index) 28.2 kg/m2 Ejection Fraction 55-60% echo. 03/17/18 06/21/2018 8:26am Height 73 inches 6'1" Weight 205.00 lb without shoes Heart Rate 72 /min BP Systolic Sitting 142 mmHg lue reg cuff BP Diastolic Sitting 84 mmHg lue reg cuff BP Systolic Standing 140 mmHg lue reg cuff BP Diastolic Standing 78 mmHg lue reg cuff BMI (Body Mass Index) 27.0 kg/m2 Ejection Fraction 55-60% echo. 03/17/2018 Results Description No Information Available Procedures Date Code Description Status 05/23/2019 65563 EKG Tracing & Interpretation Completed Medical Devices Description No Information Available Encounters Description No Information Available Assessments Date Code Description Provider 05/23/2019 I25.10 Atherosclerotic heart disease of [place] Jericho Rivers M.D. coronary artery with 05/23/2019 I10 Essential (primary) hypertension Jericho Rivers M.D. 05/23/2019 F17.210 Nicotine dependence, cigarettes, Jericho Rivers M.D. uncomplicated 05/23/2019 K08.89 Toothache Jericho Rivers M.D. Plan of Treatment 05/23/2019 - Jericho Rivers M.D.I25.10 Atherosclerotic heart disease of [place] coronary artery withI10 Essential (primary) hypertensionNew Medication: Hydrochlorothiazide 25 mg - 1 by mouth every dayNew Labs:Basic Metabolic Panel, Ordered: 05/23/19Follow up:6 fgmikpJ50.210 Nicotine dependence, cigarettes, tjtoabubzbaueR68.89 ToothacheNew Medication:Amoxicillin/Clavulanate Potassium 250-125 mg - 3 times a day for 10 days Functional Status Description No Information Available Mental Status Description No Information Available Referrals Description No Information Available
--- NOTE | 2019-07-14 07:15 | ED ---
Abdominal Pain/Male - HPI Summary HPI Summary: Patient is a 53 y/o M presenting to the ED for a chief complaint of right-sided abdominal pain that began around 22:00 on 07/13/19 after eating. Patient ate a meal of curds, potatoes, and pork the night of 07/13/19. The abdominal pain is described as an aching sensation that radiates to the back. The abdominal pain is currently resolved. Patient denies any aggravating factors. Patient notes occasional constipation which he states occurred before this episode of abdominal pain. Patient denies fever, chills, shortness of breath, chest pain, or diarrhea. PMHx is significant for a left-sided inguinal hernia and a myocardial infarction one year ago that presented with abdominal pain. He denies a FMHx of hypertension, diabetes mellitus, or hypercholesterolemia. Patient denies a PSHx of cholecystectomy. Patient also recently completed a course of antibiotics for bronchitis. Patient admits tobacco use and occasional alcohol use, but denies drug use. - History of Current Complaint Chief Complaint: EDAbdPain Stated Complaint: ABD PAIN PER PT Time Seen by Provider: 07/14/19 07:07 Hx Obtained From: Patient Onset/Duration: Sudden Onset, Still Present Timing: Intermittent, Lasting Hours Severity Initially: Moderate Severity Currently: Moderate Pain Intensity: 6 Pain Scale Used: 0-10 Numeric Location: Other - Right sided Radiates: Yes Radiates to: Back Character: Other: - Aching Aggravating Factor(s): Nothing Alleviating Factor(s): Spontaneous Resolution Associated Signs And Symptoms: Positive: Back Pain - Radiates from abdomen, Constipation, Other - Negative shortness of breath or chills. Negative: Fever, Chest Pain, Diarrhea - Allergies/Home Medications Allergies/Adverse Reactions: Allergies Allergy/AdvReac Type Severity Reaction Status Date / Time No Known Allergies Allergy Verified 07/14/19 06:24 Home Medications: Home Medications Albuterol Sulfate [Proventil Hfa] 2 puff INH Q4HR PRN 07/14/19 [History Confirmed 07/14/19] Clopidogrel TAB* [Plavix TAB*] 75 mg PO DAILY 07/14/19 [History Confirmed ] Lisinopril TAB* [Prinivil TAB*] 20 mg PO DAILY 07/14/19 [History Confirmed 07/14] PMH/Surg Hx/FS Hx/Imm Hx Previously Healthy: Yes Endocrine/Hematology History: Denies: Hx Diabetes, Hx Thyroid Disease, Hx Unexplained Bleeding Cardiovascular History: Reports: Hx Angioplasty - STENT TO THE [place]CA 4 YEARS AGO [place], Hx Coronary Artery Disease, Hx Hypercholesterolemia, Hx Hypertension, Hx Myocardial Infarction Denies: Hx Cardiac Arrest, Hx Cardiomegaly, Hx Congenital Heart Disease, Hx Congestive Heart Failure, Hx Deep Vein Thrombosis, Hx Embolism, Hx Hypotension, Hx Pacemaker/ICD, Hx Peripheral Vascular Disease, Hx Rheumatic Fever, Hx Valvular Heart Disease Respiratory History: Reports: Other Respiratory Problems/Disorders - Bronchitis Denies: Hx Asthma, Hx Chronic Obstructive Pulmonary Disease (COPD) GI History: Reports: Hx Ulcer - gerd, Other GI Disorders - Left-sided inguinal hernia Sensory History: Reports: Hx Contacts or Glasses Denies: Hx Cataracts, Hx Legally Blind, Hx Deafness, Hx Hearing Aid Opthamlomology History: Reports: Hx Contacts or Glasses Denies: Hx Cataracts, Hx Legally Blind EENT History: Denies: Hx Deafness - Surgical History Surgical History: Yes Surgery Procedure, Year, and Place: inguinal hernia left Infectious Disease History: No Infectious Disease History: Denies: Hx Hepatitis, Hx Human Immunodeficiency Virus (HIV), Hx of Known/ Suspected MRSA, Hx Shingles, Hx Tuberculosis, History Other Infectious Disease, Traveled Outside the [place] in Last 30 Days - Family History Known Family History: Positive: Cardiac Disease Negative: Hypertension, Diabetes - Social History Occupation: Employed Full-time Lives: With Family Alcohol Use: Occasionally Hx Substance Use: No Substance Use Type: Reports: None Hx Tobacco Use: Yes Smoking Status (MU): Heavy Every Day Tobacco Smoker Type: Cigarettes Amount Used/How Often: 1 PPD Have You Smoked in the Last Year: Yes Review of Systems Negative: Fever, Chills Negative: Chest Pain Negative: Shortness Of Breath Positive: Abdominal Pain - Right-sided, Other - Positive constipation. Negative : Diarrhea Positive: Myalgia - Back that radiates from abdomen All Other Systems Reviewed And Are Negative: Yes Physical Exam - Summary Physical Exam Summary: VITAL SIGNS: Reviewed. GENERAL: Patient is a well-developed and nourished male who is lying comfortable in the stretcher. Patient is not in any acute respiratory distress. HEAD AND FACE: Normocephalic and atraumatic. EYES: PERRLA, EOMI x 2, No injected conjunctiva. EARS: Hearing grossly intact. Ear canals and tympanic membranes are WNL. MOUTH: Oropharynx within normal limits. NECK: Supple, trachea is midline, no adenopathy, no JVD. CHEST: Symmetric, no tenderness at palpation. LUNGS: Clear to auscultation bilaterally. No wheezing or crackles. CVS: RRR, S1 and S2 present, no murmurs or gallops appreciated. ABDOMEN: Soft. No signs of distention. Positive bowel sounds. No rebound, no guarding, and no masses palpated. No abdominal bruit or pulsations.LUQ tenderness. EXTREMITIES: FROM in all major joints, no edema, no cyanosis or clubbing. NEURO: Alert and oriented x 3. No acute neurological deficits. Speech is normal. SKIN: Dry and warm. Triage Information Reviewed: Yes Vital Signs On Initial Exam: Initial Vitals Temp Pulse Resp BP Pulse Ox 96.3 F 66 15 159/93 97 07/14/19 06:22 07/14/19 06:22 07/14/19 06:22 07/14/19 06:22 07/14/19 06:22 Vital Signs Reviewed: Yes Procedures - Sedation Patient Received Moderate/Deep Sedation with Procedure: No Diagnostics - Vital Signs Vital Signs Temp Pulse Resp BP Pulse Ox 07/14/19 06:22 96.3 F 66 15 159/93 97 - Laboratory Result Diagrams: 07/14/19 07:27 07/14/19 07:27 Lab Statement: Any lab studies that have been ordered have been reviewed, and results considered in the medical decision making process. - Ultrasound Gallbladder US Ultrasound Interpretation Completed By: Radiologist Summary of Ultrasound Findings: Gallbladder US IMPRESSION: CHOLELITHIASIS WITH GALLBLADDER WALL THICKENING WITHOUT SONOGRAPHIC CHING SIGN OR PERICHOLECYSTIC FLUID. THE SONOGRAPHIC FEATURES ARE INDETERMINATE FOR ACUTE CHOLECYSTITIS. Reviewed by Dr. Jasmine. Re-Evaluation - Re-Evaluation First Eval Re-Evaluation Time: 07:24 Change: Unchanged Comment: At 07:24, the patient refuses to have an EKG and understands the risk. He has a history of heart attack and still refuses an EKG. Second Re-Evaluation Time: 09:14 Change: Improved Comment: At 09:14, patient is resting comfortably and in no acute distress. Abdominal Pain Male Course/Dx - Course Assessment/Plan: This patient is a 53-year-old male who presents to the emergency department with a chief complaint of right upper quadrant pain. Patient reports that the pain resolved right before he arrived to the emergency department. Patient continues to be pain free. Blood test results without any significant abnormality except for sodium of 133, glucose 105, and CRP of 65.4. Patient declined an EKG. Right upper quadrant ultrasound impression: Cholelithiasis with gallbladder wall thickening without sonographic [place] sign or any cholecystic fluid. This sonographic features an indeterminate for acute cholecystitis. Urinalysis is negative for UTI. Patient did not require any pain medications since the patient is asymptomatic. I discussed my physical exam and findings with Dr. Barger from surgery and he recommends to follow up with his office as an outpatient. I discussed all the findings and test results with the patient. Patient was instructed to return to the emergency room immediately if any of the symptoms return or worsen. Plan of care was discussed with the patient who understands and agrees. All questions were answered at the patient's satisfaction. There were no further complaints or concerns. Lung exam before discharge: CTA B/L. Good air exchange. No wheezing or crackles heard. CVS: S1 and S2 present. No murmurs appreciated. Patient is alert and oriented x 3. Patient is hemodynamically stable. Patient will be discharged home with follow up PCP in the next 2-3 days. - Diagnoses Differential Diagnosis/HQI/PQRI: Constipation, Pancreatitis, Peptic Ulcer Disease, Urinary Tract Infection Provider Diagnoses: Cholelithiasis - Provider Notifications Discussed Care Of Patient With: Berry Barger - At 09:55, Dr. Berry Barger recommends the patient follow up in outpatient. If the patient has new symptoms or worsening pain, return to the ED. Time Discussed With Above Provider: 09:55 Instructed by Provider To: Have Pt Call For Appt. Discharge ED - Sign-Out/Discharge Documenting (check all that apply): Patient Departure - Discharge - Discharge Plan Condition: Stable Disposition: HOME Patient Education Materials: Gallstones (ED) Referrals: Hellen Schaefer [Primary Care Provider] - Berry Barger MD [Medical Doctor] - Additional Instructions: FOLLOW UP WITH YOUR PRIMARY CARE PROVIDER AND DR. BARGER WITHIN 3 DAYS. RETURN TO THE ED FOR ANY WORSENING OR NEW SYMPTOMS. - Attestation Statements Document Initiated by Scribe: Yes Documenting Scribe: Ritu Sanchez Provider For Whom Scribe is Documenting (Include Credential): Artem Jasmine MD Scribe Attestation: I, Ritu Sanchez, scribed for Artem Jasmine MD on 07/14/19 at 1000. Status of Scribe Document: Ready
[2019-07-14 07:26] LABS: Urine Appearance Clear; Urine Color Yellow
[2019-07-14 07:27] LABS: Urine Bilirubin Negative (Negative); Urine Blood Negative (Negative); Urine Glucose Negative (Negative); Urine Ketones Negative (Negative); Urine Nitrite Negative (Negative); Urine Protein Negative (Negative); Urine Specific Gravity 1.015 (1.010-1.030); Urine Urobilinogen Negative (Negative)
[2019-07-14 07:43] LABS: ABS Basophils 0.1 10^3/ul (0-0.2); ABS Eosinophils 0.1 10^3/ul (0-0.6); ABS Lymphocytes 1.6 10^3/ul (1.0-4.8); ABS Monocytes 0.6 10^3/ul (0-0.8); ABS Neutrophils 8.4 10^3/ul (1.5-7.7); Eosinophil % 0.6 %; Hematocrit 44 % (42-52); Hemoglobin 15.4 g/dL (14.0-18.0); Mean Corpuscular HGB Conc 35 g/dL (31-36); Mean Corpuscular Hemoglobin 34 pg (27-31); Mean Corpuscular Volume 97 fL (80-94); Mean Platelet Volume 8.6 fL (7.4-10.4); Platelet Count 244 10^3/uL (150-450); Red Cell Distribution Width 13 % (10-15); White Blood Count 10.8 10^3/uL (3.5-10.8)
[2019-07-14 07:53] LABS: Albumin/Globulin Ratio 1.1 (1-3); BUN/Creatinine Ratio 18.3 (8-20); C Reactive Protein 65.41 mg/L (<8.01); Calcium 9.6 mg/dL (8.6-10.3); EGFR African American 102.1 (>60); EGFR Non-African American 84.4 (>60); Globulin 3.6 g/dL (2-4); Potassium 4.5 mmol/L (3.5-5.0); Total Bilirubin 0.4 mg/dL (0.2-1.0); Total Protein 7.6 g/dL (6.4-8.9)
[2019-07-14 07:54] LABS: Troponin I 0.01 ng/mL (<0.04)
[2019-07-14 10:13] VITALS: BP 133/87
== END 2019-07-14 11:00 | disposition home or self-care (01) ==
LOC: ED 06:22
DX: K80.20 Calculus of gallbladder without cholecystitis without obstruction (principal); K59.00 Constipation, unspecified; I10 Essential (primary) hypertension; Z79.01 Long term (current) use of anticoagulants; Z95.5 Presence of coronary angioplasty implant and graft; F17.210 Nicotine dependence, cigarettes, uncomplicated
CPT/HCPCS: 36415; 76705; 80053; 81003; 83605; 83690; 84484; 85025; 86140; 99283